=== PATIENT | male | born 1995 | race Caucasian/White ===

== ENCOUNTER 2020-10-30 14:23 | Inpatient (IN) | payer MEDICAID ==
[~2020-10-30] VITALS: Ht 180.3 cm; Wt 74.8 kg
[2020-10-30] MEDS ORDERED: SODIUM CHLORIDE 0.9% 1,000 ML IV ONE (21:30)
[2020-10-30] MEDS ORDERED: VANCOMYCIN 1 G PREMIX 200 ML IV ONE (21:30)
[2020-10-30] MEDS ORDERED: PIPERACILLIN/TAZ 3.375G PREMIX 50 ML IV ONE (21:30)
[2020-10-30 22:01] LABS: BASOPHILS % 0.6 % (0.0-2.0); EOSINOPHILS % 2.8 % (0.0-5.0); HEMATOCRIT. 38.4 % (42.0-52.0); HEMOGLOBIN. 12.9 g/dL (14.0-18.0); MEAN CORPUSCULAR HEMOGLOBIN 23.7 pg (28.0-32.0); MEAN CORPUSCULAR VOLUME 70.4 fL (80.0-94.0); MEAN PLATELET VOLUME 7.5 fl (7.4-10.4); MONOCYTES % 12.1 % (2.0-8.0); NEUTROPHILS % 60.5 % (40.0-76.0); PLATELET 251 x1000/uL (130-400); RED BLOOD CELL COUNT 5.45 mill/uL (4.7-6.1); RED CELL DISTRIBUTION WIDTH 17.2 % (11.6-14.6)
[2020-10-30 22:08] LABS: CHLORIDE 108 mEq/L (98-107)
[2020-10-30 22:10] LABS: PROTHROMBIN TIME 10.3 sec (9.6-11.0)
[2020-10-30 22:18] LABS: CREATINE KINASE 79 IU/L (39-308)
[2020-10-31 04:00] LABS: CLARITY URINE CLEAR (CLEAR); COLOR URINE YELLOW (YELLOW); KETONES URINE NEGATIVE (NEGATIVE); LEUKOCYTE ESTERASE URINE NEGATIVE (NEGATIVE); NITRITE URINE NEGATIVE (NEGATIVE); OCCULT BLOOD URINE NEGATIVE (NEGATIVE); PH URINE 5.5 (4.5-8.0); PROTEIN URINE NEGATIVE (NEGATIVE); SPECIFIC GRAVITY URINE 1.022 (1.005-1.030); UROBILINOGEN URINE 0.2 E.U./dL (0.2-1.0)
[2020-10-31] MEDS ORDERED: NON FORMULARY PATIENT HOME MED XX SCH (10:15)
[2020-10-31 11:06] VITALS: BP 96/52
[2020-10-31] MEDS ORDERED: DOXY150T5 MT (11:34)
[2020-10-31] MEDS ORDERED: BICT1TAB PO (11:34)
[2020-10-31 12:00] VITALS: BP 115/56
[2020-10-31] MEDS: ENOXAPARIN 40MG/0.4ML SYR SUBCUT SCH (13:30)
[2020-10-31 16:00] VITALS: BP 107/61
[2020-10-31] MEDS: PIPERACILLIN/TAZOBACTAM 3.375 G in DEXTROSE 5% WATER 50 ML IV SCH ×2 (16:58→22:00)
[2020-10-31 20:00] VITALS: BP 98/59
[2020-10-31] MEDS ORDERED: DIPHENHYDRAMINE 50MG/ML VIAL IV PRN (23:30)
[2020-11-01] VITALS: BP 110/60
[2020-11-01 04:00] VITALS: BP 115/65
[2020-11-01] MEDS: PIPERACILLIN/TAZOBACTAM 3.375 G in DEXTROSE 5% WATER 50 ML IV SCH (06:37)
[2020-11-01 06:53] LABS: BASOPHILS % 0.7 % (0.0-2.0); EOSINOPHILS % 3.5 % (0.0-5.0); HEMATOCRIT. 42.2 % (42.0-52.0); HEMOGLOBIN. 13.8 g/dL (14.0-18.0); LYMPHOCYTES % 32.8 % (20.0-50.0); MEAN CORPUSCULAR HEMOGLOBIN 23.4 pg (28.0-32.0); MEAN CORPUSCULAR VOLUME 71.4 fL (80.0-94.0); MEAN PLATELET VOLUME 8.2 fl (7.4-10.4); MONOCYTES % 12.6 % (2.0-8.0); NEUTROPHILS % 50.4 % (40.0-76.0); PLATELET 292 x1000/uL (130-400); RED CELL DISTRIBUTION WIDTH 17.2 % (11.6-14.6)
[2020-11-01 07:24] LABS: CHLORIDE 104 mEq/L (98-107)
[2020-11-01 08:00] VITALS: BP 124/55
[2020-11-01] MEDS: ENOXAPARIN 40MG/0.4ML SYR SUBCUT SCH (08:40)
[2020-11-01 11:23] VITALS: BP 18/124
[2020-11-01 12:00] VITALS: BP 109/67
== END 2020-11-01 12:10 | disposition home or self-care (01) | DRG 894 ==
LOC: ER 14:23 → MICUSO 22:41 → 6EST 10-31 07:27
PROVIDERS: ADMIT Internal Medicine; ATTEND Internal Medicine
DX: L03.115 Cellulitis of right lower limb (principal); B20 Human immunodeficiency virus [HIV] disease; E87.8 Other disorders of electrolyte and fluid balance, not elsewhere classified; E83.51 Hypocalcemia; E44.1 Mild protein-calorie malnutrition; Z68.23 Body mass index [BMI] 23.0-23.9, adult; Z79.899 Other long term (current) drug therapy
CPT/HCPCS: 36415; 73560; 80048; 80053; 81003; 82550; 83605; 84145; 85025; 86140; 93971; 99285; J2543; J3370; J7030; J7040; J7060